=== PATIENT | male | born 1980 | race Caucasian/White ===

== ENCOUNTER 2017-12-26 04:22 | Emergency (ER) | payer OTHER ==
[2017-12-26] MEDS ORDERED: predniSONE 20 MG TABLET (UD) PO ONE (04:38)
[2017-12-26 04:39] VITALS: BP 105/70; PULSE 102; TEMP 98.1; BMI 20.7
[2017-12-26] MEDS ORDERED: ALBUTEROL SO4 2.5/IPRATROPIUM 0.5 INH SOL 3 ML VIAL.NEB. NEB STA ×2 (04:39)
--- NOTE | 2017-12-26 04:40 | PDOC ---
History of Present Illness - General History Source: Patient <Aristides Islas - Last Filed: 12/26/17 06:18> - General History Source: Patient Exam Limitations: No Limitations - History of Present Illness Initial Comments: 12/26/17 04:52 The patient is a 37 year old male with significant past medical history of asthma, seizures presents to the emergency department complaining of difficulty breathing. The patient reports dyspnea for the past 2 weeks, with right sided chest upper flank pain and occasional productive cough. Associated symptoms of active cough, and pain with deep breathing. Denies fever or chills. Denies nausea, vomiting, diarrhea or constipation. Denies any discoloration of the skin or orthopnea. Denies dysuria, hematuria, frequency or urgency to urinate. Allergies: NKDA Social history:The patient reports the use of cigarettes, 1 pack daily. No use of alcohol or recreational drug reported. Surgical history: L. Pneumothorax PCP: Dr. Cristy Nuñez <Haydee Simmons - Last Filed: 12/26/17 06:21> - General Chief Complaint: Shortness of Breath Stated Complaint: DIFFICULTY BREATHING Time Seen by Provider: 12/26/17 04:35 Past History - Past Medical History Asthma: Yes Seizures: Yes - Surgical History Lung Surgery: Yes (L PNEUMOTHORAX.) - Suicide/Smoking/Psychosocial Hx Smoking Status: Yes Smoking History: Current every day smoker Number of Cigarettes Smoked Daily: 15 Information on smoking cessation initiated: No 'Breaking Loose' booklet given: 08/12/13 Hx Alcohol Use: No Drug/Substance Use Hx: No Substance Use Type: Alcohol <Aristides Islas - Last Filed: 12/26/17 06:18> <Haydee Simmons - Last Filed: 12/26/17 06:21> - Past Medical History Allergies/Adverse Reactions: Allergies Allergy/AdvReac Type Severity Reaction Status Date / Time No Known Allergies Allergy Verified 12/26/17 04:33 Home Medications: Ambulatory Orders Albuterol 0.083% Nebulizer Kassy [Ventolin 0.083% Nebulizer Soln -] 1 neb NEB Q6H #30 vial 12/26/17 Sulfamethoxazole/Trimethoprim [Bactrim *Ds*] 1 tab PO BID #20 tablet 12/26/17 predniSONE [Deltasone -] 40 mg PO DAILY #14 tablet 05/17/18 Review of Systems - Review of Systems Able to Perform ROS?: Yes Comments:: 12/26/17 04:51 CONSTITUTIONAL: Absent: fever, chills, diaphoresis, generalized weakness, malaise, loss of appetite HEENT: Absent: rhinorrhea, nasal congestion, throat pain, throat swelling, difficulty swallowing, mouth swelling, ear pain, eye pain, visual Changes CARDIOVASCULAR: Absent: chest pain, syncope, palpitations, irregular heart rate, lightheadedness , peripheral edema RESPIRATORY: (+) difficulty breathing and pain with deep breathing, occasional productive cough. Absent:shortness of breath, orthopnea stridor, hemoptysis GASTROINTESTINAL: Absent: abdominal pain, abdominal distension, nausea, vomiting, diarrhea, constipation, melena, hematochezia GENITOURINARY: Absent: dysuria, frequency, urgency, hesitancy, hematuria, flank pain, genital pain MUSCULOSKELETAL: Absent: myalgia, arthralgia, joint swelling SKIN: Absent: rash, itching, pallor HEMATOLOGIC/IMMUNOLOGIC: Absent: easy bleeding, easy bruising, lymphadenopathy, frequent infections ENDOCRINE: Absent: unexplained weight gain, unexplained weight loss, heat intolerance, cold intolerance NEUROLOGIC: Absent: headache, focal weakness or paresthesias, dizziness, unsteady gait, seizure, mental status changes, bladder or bowel incontinence PSYCHIATRIC: Absent: anxiety, depression, suicidal or homicidal ideation, hallucinations. <Haydee Simmons - Last Filed: 12/26/17 06:21> *Physical Exam - Vital Signs Last Vital Signs Temp Pulse Resp BP Pulse Ox 98.1 F 102 H 18 105/70 95 12/26/17 04:34 12/26/17 04:34 12/26/17 04:34 12/26/17 04:34 12/26/17 04:34 <Aristides Islas - Last Filed: 12/26/17 06:18> - Vital Signs Last Vital Signs Temp Pulse Resp BP Pulse Ox 98.1 F 102 H 18 105/70 95 12/26/17 04:34 12/26/17 04:34 12/26/17 04:34 12/26/17 04:34 12/26/17 04:34 - Physical Exam Comments: 12/26/17 04:51 GENERAL: Well developed, well nourished. Awake and alert. No acute distress. HEENT: Normocephalic, atraumatic. PERRLA, EOMI. No conjunctival pallor. Sclera are non- icteric. Moist mucous membranes. Oropharynx is clear. NECK: Supple. Full ROM. No JVD. Carotid pulses 2+ and symmetric, without bruits. No thyromegaly. No lymphadenopathy. CARDIOVASCULAR: Regular rate and rhythm. No murmurs, rubs, or gallops. Distal pulses are 2+ and symmetric. PULMONARY: (+) Course wheezing throughout both lung field, more diminished breath sounds in the right lower lung field. No rales or rhonchi. ABDOMINAL: Soft. Non-tender. Non-distended. No rebound or guarding. No organomegaly. Normoactive bowel sounds. MUSCULOSKELETAL Normal range of motion at all joints. No bony deformities or tenderness. No CVA tenderness. EXTREMITIES: No cyanosis. No clubbing. No edema. No calf tenderness. SKIN: Warm and dry. Normal capillary refill. No rashes. No jaundice. NEUROLOGICAL: Alert, awake, appropriate. Cranial nerves 2-12 intact. No deficits to light touch and temperature in face, upper extremities and lower extremities. No motor deficits in the in face, upper extremities and lower extremities. Normoreflexic in the upper and lower extremities. Normal speech. Toes are down- going bilaterally. Gait is normal without ataxia. PSYCHIATRIC: Cooperative. Good eye contact. Appropriate mood and affect. <Haydee Simmons - Last Filed: 12/26/17 06:21> ED Treatment Course - Medications Given in the ED: ED Medications Discontinued Medications Generic Name Dose Route Start Last Admin Trade Name Freq PRN Reason Stop Dose Admin Albuterol/Ipratropium 1 amp 12/26/17 04:39 12/26/17 04:48 Duoneb - NEB 12/26/17 04:40 1 amp ONCE STA Administration Albuterol/Ipratropium 1 amp 12/26/17 04:39 12/26/17 04:48 Duoneb - NEB 12/26/17 04:40 1 amp ONCE STA Administration Prednisone 60 mg 12/26/17 04:38 12/26/17 04:48 Deltasone - PO 12/26/17 04:39 60 mg ONCE ONE Administration <Haydee Simmons - Last Filed: 12/26/17 06:21> Medical Decision Making - Medical Decision Making 12/26/17 06:20 Dr. Islas: The scribe's documentation has been prepared under my direction and personally reviewed by me in its entirery. I confirm that the note above accurately reflects all work, treatment, procedures, and medical decision making performed by me. <Aristides Islas - Last Filed: 12/26/17 06:18> - Medical Decision Making 12/26/17 04:53 Documentation prepared by Haydee Simmons, acting as medical records coordinator for Aristides Islas DO <Haydee Simmons - Last Filed: 12/26/17 06:21> *DC/Admit/Observation/Transfer - Discharge Dispostion Decision to Admit order: No <Aristides Islas - Last Filed: 12/26/17 06:18> <Haydee Simmons - Last Filed: 12/26/17 06:21> Diagnosis at time of Disposition: Shortness of breath Acute bronchitis Qualifiers: Bronchitis organism: other organism Qualified Code(s): J20.8 - Acute bronchitis due to other specified organisms - Discharge Dispostion Disposition: HOME Condition at time of disposition: Stable - Prescriptions Prescriptions: Albuterol 0.083% Nebulizer Kassy [Ventolin 0.083% Nebulizer Soln -] 1 neb NEB Q6H #30 vial predniSONE [Deltasone -] 40 mg PO DAILY #14 tablet Sulfamethoxazole/Trimethoprim [Bactrim *Ds*] 1 tab PO BID #20 tablet - Referrals Referrals: Cristy Nuñez MD [Primary Care Provider] - - Patient Instructions Printed Discharge Instructions: DI for Asthma -- Adult, DI for Acute Bronchitis
[2017-12-26] MEDS ORDERED: predniSONE 20 MG TABLET (UD) ONE (04:41)
[2017-12-26] MEDS ORDERED: SULFAMETHOXAZOLE/TRIMETHOPRIM 800MG/160MG D.S. TABLET PO ONE (06:17)
[2017-12-26] MEDS ORDERED: SULFAMETHOXAZOLE/TRIMETHOPRIM 800MG/160MG D.S. TABLET ONE (06:20)
== END 2017-12-26 06:25 | disposition home or self-care (01) ==
LOC: JER 04:22
PROC: 3E0F7GC Introduction of Other Therapeutic Substance into Respiratory Tract, Via Natural or Artificial Opening (ICD-10-PCS; principal; 2017-12-26)
PROC: 3E0F7GC Introduction of Other Therapeutic Substance into Respiratory Tract, Via Natural or Artificial Opening (ICD-10-PCS; 2017-12-26)
DX: J20.9 Acute bronchitis, unspecified (principal); F17.210 Nicotine dependence, cigarettes, uncomplicated
CPT/HCPCS: 71046-TC-FY; 99281-25; J7620

== ENCOUNTER 2018-01-30 23:16 | Inpatient (IN) | payer OTHER ==
--- NOTE | 2018-01-31 00:20 | HP ---
CIWA Score - CIWA Score Nausea/Vomitin-No Nausea/No Vomiting Muscle Tremors: None Anxiety: 4-Mod. Anxious/Guarded Agitation: 4-Moderately Restless Paroxysmal Sweats: 3 Orientation: 1-Uncertain about Date Tacttile Disturbances: 0-None Auditory Disturbances: 0-None Visual Disturbances: 0-None Headache: 0-None Present CIWA-Ar Total Score: 12 Admission ROS BHS - HPI Chief Complaint: SEEKING DETOX FOR WITHDRAWAL SX'S FROM ETOH Allergies/Adverse Reactions: Allergies Allergy/AdvReac Type Severity Reaction Status Date / Time No Known Allergies Allergy Verified 01/31/18 00:12 History of Present Illness: 37 Y.O. MALE WITH HX/O OPIOID, COCAINE, THC DEPENDENCE HERE FOR DETOX. UTOX ONLY POSITIVE FOR THC. INFORMED CLIENT THAT HE WILL ONLY BE DETOXED FROM ALCOHOL. CLIENT VERBALIZES UNDERSTANDING. SELF REFERRED. CLIENT REPORTS FIRST TIME IN DETOX. HE ATTEND NEW FOCUS HERE AT [facility]. REPORTS AN OVERDOSE X1 IN 2013. DENIES HX/O A/V HALLUCINATIONS, SEIZURES D/O, BLACK OUTS. DENIES LEGALS Exam Limitations: No Limitations - Ebola screening Have you traveled outside of the country in the last 21 days: No (N) Have you had contact with anyone from an Ebola affected area: No Do you have a fever: No - Review of Systems Constitutional: Chills, Loss of Appetite, Malaise, Night Sweats, Changes in sleep EENT: reports: No Symptoms Reported Respiratory: reports: Shortness of Breath (ASTHMA) Cardiac: reports: No Symptoms Reported GI: reports: No Symptoms Reported : reports: No Symptoms Reported Musculoskeletal: reports: No Symptoms Reported Integumentary: reports: No Symptoms Reported Neuro: reports: No Symptoms reported Endocrine: reports: No Symptoms Reported Hematology: reports: No Symptoms Reported Psychiatric: reports: Anxious, Depressed Other Systems: Reviewed and Negative Patient History - Patient Medical History Hx Anemia: No Hx Asthma: Yes Hx Chronic Obstructive Pulmonary Disease (COPD): No Hx Cancer: No Hx Cardiac Disorders: No Hx Congestive Heart Failure: No Hx Hypertension: No Hx Hypercholesterolemia: No Hx Pacemaker: No HX Cerebrovascular Accident: No Hx Seizures: No Hx Dementia: No Hx Diabetes: No Hx Gastrointestinal Disorders: No Hx Liver Disease: No Hx Genitourinary Disorders: No Hx Sexually Transmitted Disorders: No Hx Renal Disease (ESRD): No Hx Thyroid Disease: No Hx Human Immunodeficiency Virus (HIV): No Hx Hepatitis C: No Hx Depression: Yes Hx Suicide Attempt: No Hx Bipolar Disorder: No Hx Schizophrenia: No Other Medical History: ANXIETY - Patient Surgical History Past Surgical History: Yes Hx Lung Surgery: Yes (L PNEUMOTHORAX.) Anesthesia Reaction: No - PPD History Previous Implant?: Yes Documented Results: Negative w/o proof Implanted On Prior [facility] Admission?: Yes PPD to be Administered?: Yes - Smoking Cessation Smoking history: Current every day smoker Aproximately how many cigarettes per day: 10 Cigars Per Day: 0 Hx Chewing Tobacco Use: No Initiated information on smoking cessation: Yes 'Breaking Loose' booklet given: 01/31/18 - Substance & Tx. History Hx Alcohol Use: Yes Hx Substance Use: Yes Substance Use Type: Alcohol, Cocaine, Heroin, Marijuana Hx Substance Use Treatment: Yes ([facility]) - Substances Abused BEER Route: Oral Frequency: 3-6 times per week Amount used: 3-12OZ Age of first use: 21 Date of Last Use: 01/30/18 COCAINE Route: Inhalation Frequency: 1-2 times per week Amount used: $20 Age of first use: 33 Date of Last Use: 01/28/18 THC Route: Smoking Frequency: Daily Amount used: 4 BLUNTS Age of first use: 12 Date of Last Use: 01/30/18 HEROIN Route: Inhalation Frequency: 3-6 times per week Amount used: 3 BAGS Age of first use: 32 Date of Last Use: 01/27/18 Family Disease History - Family Disease History Family History: Denies Admission Physical Exam [facility] - Physical General Appearance: Yes: Appropriately Dressed, Tremorous (FELT), Sweating ( FLUSHED FACE), Anxious HEENTM: Yes: EOMI, Normocephalic, Normal Voice, GETACHEW, Pharynx Normal, Other ( POOR DENTITION) Respiratory: Yes: Chest Non-Tender, Decreased Breath Sounds, No Respiratory Distress, No Accessory Muscle Use, Wheezing Neck: Yes: No masses,lesions,Nodules, Supple, Trachea in good position Breast: Yes: Breast Exam Deferred Cardiology: Yes: Regular Rhythm, Regular Rate, S1, S2 Abdominal: Yes: Normal Bowel Sounds, Non Tender, Flat, Soft Genitourinary: Yes: Within Normal Limits Back: Yes: Normal Inspection Musculoskeletal: Yes: full range of Motion, Gait Steady Extremities: Yes: Normal Capillary Refill, Normal Range of Motion, Non-Tender, Tremors Neurological: Yes: dump worker II-XII NML intact, Fully Oriented, Alert, Motor Strength 5/5 Integumentary: Yes: Normal Color, Warm, Other (FLLUSHED FACE) Lymphatic: Yes: Within Normal Limits - Diagnostic (1) Alcohol dependence with uncomplicated withdrawal Current Visit: Yes Status: Acute (2) Cannabis abuse, uncomplicated Current Visit: Yes Status: Acute (3) Asthma Current Visit: Yes Status: Acute (4) Nicotine dependence Current Visit: Yes Status: Acute Cleared for Admission [facility] - Detox or Rehab [facility] Level of Care: Medically Managed Detox Regimen/Protocol: Librium Claeared for Rehab Admission: No [facility] Breath Alcohol Content Breath Alcohol Content: 0.254 Vital Signs - Vital Signs Vital Signs Refused: No Temperature: 98.6 F Temperature Source: Oral Pulse Rate: 85 Respiratory Rate: 18 Blood Pressure: 107/63 BP Location: Left Arm Blood Pressure Position: Sitting - Height Height: 5 ft 9 in - Weight Weight: 58.06 kg Weight Measurement Method: Standing Scale Body Mass Index (BMI): 18.8 - Bowel Function Bowel Movement: No Urine Drug Screen - Test Device Lot Number: [id number] Expiration Date: 10/09/19 - Results Drug Screen Negative: Yes Urine Drug Screen Results: THC-Marijuana
[2018-01-31] MEDS ORDERED: IBUPROFEN 400 MG TABLET (FP) PO PRN (00:35)
[2018-01-31] MEDS ORDERED: ACETAMINOPHEN 325 MG TABLET (FP) PO PRN (00:35)
[2018-01-31] MEDS ORDERED: MAGNESIUM HYDROX 2400MG/30ML ORAL SUSPENSION 30 ML CUP PO PRN (00:35)
[2018-01-31] MEDS ORDERED: LOPERAMIDE HCL 2 MG CAPSULE PO PRN (00:35)
[2018-01-31] MEDS ORDERED: NICOTINE POLACRILEX 2 MG GUM BC PRN (00:35)
[2018-01-31] MEDS ORDERED: chlordiazePOXIDE HCL 25 MG CAPSULE PO PRN (00:35)
[2018-01-31] MEDS ORDERED: guaiFENesin/D-METHORPHAN HB 10 ML UNIT-DOSE CUPS PO PRN (00:35)
[2018-01-31] MEDS ORDERED: MENTHOL/PHENOL 1 EACH UD MM PRN (00:35)
[2018-01-31] MEDS ORDERED: hydrOXYzine PAMOATE 50 MG CAPSULE (FP) PO PRN (00:35)
[2018-01-31] MEDS ORDERED: MAG HYDROX/AL HYDROX/SIMETH 30 ML UNIT-DOSE CUP PO PRN (00:35)
[2018-01-31] MEDS ORDERED: MAGNESIUM CITRATE 300 ML BOTTLE PO PRN (00:35)
[2018-01-31] MEDS ORDERED: P-EPHED 60MG/TRIPROLIDI 2.5MG TABLET PO PRN (00:35)
[2018-01-31] MEDS ORDERED: ALBUTEROL SO4 18 GM HFA INHALER IH PRN (00:37)
[2018-01-31] MEDS ORDERED: ALBUTEROL SO4 0.083% IH SOL 2.5 MG/3 ML VIAL.NEB. NEB PRN (00:45)
[2018-01-31 00:48] VITALS: BMI 18.8
[2018-01-31] MEDS ORDERED: chlordiazePOXIDE HCL 25 MG CAPSULE ONE (01:07)
[2018-01-31] MEDS: chlordiazePOXIDE HCL 25 MG CAPSULE PO SCH ×4 (05:59→22:39)
--- NOTE | 2018-01-31 08:57 | EKG ---
Test Reason : Blood Pressure : / mmHG Vent. Rate : 075 BPM Atrial Rate : 075 BPM P-R Int : 196 ms QRS Dur : 092 ms QT Int : 364 ms P-R-T Axes : 070 056 073 degrees QTc Int : 406 ms NORMAL SINUS RHYTHM NORMAL ECG Confirmed by RASHEED SELLERS MD ([id number]) on 01/31/2018 8:57:03 AM Referred By: Confirmed By:RASHEED SELLERS MD
[2018-01-31] MEDS ORDERED: PRENATAL VITAMINS W/ FOLIC ACID TABLET (FP) PO SCH (10:00)
[2018-01-31] MEDS ORDERED: NICOTINE 21 MG/24 HOURS TOPICAL PATCH TD SCH (10:00)
--- NOTE | 2018-01-31 11:04 | CONSULT ---
[facility] Psychiatric Consult - Data Date of interview: 01/31/18 Admission source: [facility] Identifying data: Patient is a 37 year old single male, without kids, domiciled , and currently homeless. This is patient's first admission to detox at [facility]. Patient admitted to [facility] detox for alcohol dependence. Substance Abuse History: Substance & Tx. History. Hx Alcohol Use: Yes. Hx Substance Use: Yes. Substance Use Type: Alcohol, Cocaine, Heroin, Marijuana. Hx Substance Use Treatment: Yes ([facility]). - Substances Abused. * * BEER. Route: Oral. Frequency: 3-6 times per week. Amount used: 3-12OZ. Age of first use: 21. Date of Last Use: 01/30/18. COCAINE. Route: Inhalation. Frequency: 1-2 times per week. Amount used: $20. Age of first use : 33. Date of Last Use: 01/28/18. THC. Route: Smoking. Frequency: Daily. Amount used: 4 BLUNTS. Age of first use: 12. Date of Last Use: 01/30/18. * * HEROIN. Route: Inhalation. Frequency: 3-6 times per week. Amount used: 3 BAGS. Age of first use: 32. Date of Last Use: 01/27/18 Medical History: Asthma, h/o left pneumothroax Psychiatric History: Patient denies h/o psychiatric hospitalizations, oupatient care and suicide attempt. Pt. reports being diagnosed with depression two years ago while he was in the inpatient rehab unit at [facility]. He was started on mirtzapine and prozac but stopped taking medications after completing his prescription. Pt. was restarted on mirtzapine while he was incarcerated in December of 2017 and once again was nonadherent after being released from [facility]. Pt. requesting to restart Mirtzapine. Pt. denies h/o suicide attempt. Physical/Sexual Abuse/Trauma History: Denies. Mental Status Exam - Mental Status Exam Alert and Oriented to: Time, Place, Person Cognitive Function: Good Patient Appearance: Well Groomed Mood: Hopeful, Euthymic Affect: Mood Congruent Patient Behavior: Cooperative Speech Pattern: Appropriate Voice Loudness: Normal Thought Process: Intact, Goal Oriented Thought Disorder: Not Present Hallucinations: Denies Suicidal Ideation: Denies Homicidal Ideation: Denies Insight/Judgement: Poor Sleep: Poorly Appetite: Fair Muscle strength/Tone: Normal Gait/Station: Normal Psychiatric Findings - Problem List ([place] 1, 2,3) (1) Alcohol dependence with uncomplicated withdrawal Current Visit: Yes Status: Acute (2) Asthma Current Visit: Yes Status: Chronic Qualifiers: Asthma severity: mild Asthma persistence: intermittent Asthma complication type: uncomplicated Qualified Code(s): J45.20 - Mild intermittent asthma, uncomplicated (3) Cannabis abuse, uncomplicated Current Visit: Yes Status: Acute (4) Nicotine dependence Current Visit: Yes Status: Chronic Qualifiers: Nicotine product type: cigarettes Substance use status: uncomplicated Qualified Code(s): F17.210 - Nicotine dependence, cigarettes, uncomplicated (5) Substance induced mood disorder Current Visit: Yes Status: Suspected - Initial Treatment Plan Initial Treatment Plan: Psychoeducation provided. Detoxificaition in progress. Mirtzapine 15mg qhs ordered. Benefits and side effects discussed. Verbal consent given.
[2018-01-31] MEDS ORDERED: PNEUMOCOCCAL 23 VACCINE 0.5 ML VIAL IM ONE (12:00)
[2018-01-31] MEDS ORDERED: PNEUMOC 13-VAL CONJ-DIP CRM/PF 0.5 ML DISP.SYRIN IM ONE (12:00)
--- NOTE | 2018-01-31 16:03 | PN ---
S CIWA - CIWA Score Nausea/Vomitin-No Nausea/No Vomiting Muscle Tremors: None Anxiety: 4-Mod. Anxious/Guarded Agitation: 1-Slight > Activity Paroxysmal Sweats: 3 Orientation: 0-Oriented Tacttile Disturbances: 2-Mild Itch/Numbness/Burn Auditory Disturbances: 0-None Visual Disturbances: 2-Mild Sensitivity Headache: 4-Moderately Severe CIWA-Ar Total Score: 16 BHS Progress Note (SOAP) Subjective: Tremors, Sweating, Fatigue, H/A. Objective: PATIENT A & O X 3. NO ACUTE DISTRESS. 01/31/18 16:04 Vital Signs Temperature 98.8 F 01/31/18 13:36 Pulse Rate 76 01/31/18 15:00 Respiratory Rate 18 01/31/18 15:00 Blood Pressure 113/77 01/31/18 13:36 O2 Sat by Pulse Oximetry (%) ADMISSION LABS RESULTS PENDING. 01/31/18 16:05 Assessment: 01/31/18 16:06 WITHDRAWAL SYMPTOMS. Plan: CONTINUE DETOX. INCREASE DAILY PO FLUID INTAKE.
[2018-01-31] MEDS ORDERED: MELATONIN 5 MG TABLETS PO PRN (22:00)
[2018-01-31] MEDS ORDERED: THIAMINE HCL 100 MG TABLET (FP) PO SCH (22:00)
[2018-01-31] MEDS ORDERED: MIRTAZAPINE 15 MG TABLET (FP) PO SCH (22:00)
[2018-02-01] MEDS ORDERED: chlordiazePOXIDE HCL 25 MG CAPSULE PO SCH (05:00)
[2018-02-01 06:18] VITALS: BP 122/79; PULSE 79; TEMP 98.6
[2018-02-01 10:36] LABS: HEMATOCRIT 44.1 % (35.4-49); HEMOGLOBIN 15.3 GM/dL (11.7-16.9); MCH 34.9 pg (25.7-33.7); MCHC 34.8 g/dl (32.0-35.9); MEAN CELL VOLUME 100.2 fl (80-96); MEAN PLT VOLUME 8.4 fl (7.5-11.1); PLATELET COUNT 150 K/MM3 (134-434); RDW 12.4 % (11.9-15.9); WHITE BLOOD COUNT 5.9 K/mm3 (4.0-10.0)
[2018-02-01 10:50] LABS: ALBUMIN 3.7 g/dl (3.4-5.0); CHLORIDE 101 mmol/L (98-107); SODIUM 138 mmol/L (136-145)
[2018-02-01 11:05] LABS: ALK PHOS 101 U/L (45-117); ANION GAP 11 (8-16); BILIRUBIN,TOTAL 1.6 mg/dL (0.2-1.0); BLOOD UREA NITROGEN 9 mg/dL (7-18); CALCIUM 8.7 mg/dL (8.5-10.1); CO2 26 mmol/L (21-32); CREATININE 0.6 mg/dL (0.7-1.3); GLUCOSE,RANDOM 81 mg/dL (74-106); SGOT/AST 52 U/L (15-37); SGPT/ALT 43 U/L (12-78); TOT PROT 6.8 g/dl (6.4-8.2)
--- NOTE | 2018-02-01 13:48 | PN ---
[facility] CIWA - CIWA Score Nausea/Vomitin-No Nausea/No Vomiting Muscle Tremors: 2 Anxiety: 4-Mod. Anxious/Guarded Agitation: 4-Moderately Restless Paroxysmal Sweats: 2 Orientation: 0-Oriented Tacttile Disturbances: 2-Mild Itch/Numbness/Burn Auditory Disturbances: 0-None Visual Disturbances: 1-Very Mild Sensitivity Headache: 0-None Present CIWA-Ar Total Score: 15 BHS Progress Note (SOAP) Subjective: Tremors, Sweating, Fatigue, Anxious. Objective: 02/01/18 13:48 Vital Signs Temperature 98.6 F 02/01/18 06:17 Pulse Rate 79 02/01/18 06:17 Respiratory Rate 16 02/01/18 06:17 Blood Pressure 122/79 02/01/18 06:17 O2 Sat by Pulse Oximetry (%) Laboratory Tests 02/01/18 02/01/18 02/01/18 08:00 08:00 08:00 WBC 5.9 RBC 4.40 Hgb 15.3 Hct 44.1 MCV 100.2 H MCH 34.9 H MCHC 34.8 RDW 12.4 Plt Count 150 MPV 8.4 Sodium 138 Potassium 3.0 L Chloride 101 Carbon Dioxide 26 Anion Gap 11 BUN 9 Creatinine 0.6 L Creat Clearance w eGFR > 60 Random Glucose 81 Calcium 8.7 Total Bilirubin 1.6 H AST 52 H ALT 43 Alkaline Phosphatase 101 Total Protein 6.8 Albumin 3.7 HIV 1&2 Antibody Screen Negative HIV P24 Antigen Negative LABS NOTED. Assessment: PATIENT A & O X 3, OBSERVED AMBULATING ON UNIT. NO ACUTE DISTRESS. 02/01/18 13:48 Vital Signs Temperature 98.6 F 02/01/18 06:17 Pulse Rate 79 02/01/18 06:17 Respiratory Rate 16 02/01/18 06:17 Blood Pressure 122/79 02/01/18 06:17 O2 Sat by Pulse Oximetry (%) Laboratory Tests 02/01/18 02/01/18 02/01/18 08:00 08:00 08:00 WBC 5.9 RBC 4.40 Hgb 15.3 Hct 44.1 MCV 100.2 H MCH 34.9 H MCHC 34.8 RDW 12.4 Plt Count 150 MPV 8.4 Sodium 138 Potassium 3.0 L Chloride 101 Carbon Dioxide 26 Anion Gap 11 BUN 9 Creatinine 0.6 L Creat Clearance w eGFR > 60 Random Glucose 81 Calcium 8.7 Total Bilirubin 1.6 H AST 52 H ALT 43 Alkaline Phosphatase 101 Total Protein 6.8 Albumin 3.7 HIV 1&2 Antibody Screen Negative HIV P24 Antigen Negative LABS NOTED. HYPOKALEMIA. 02/01/18 13:54 Plan: CONTINUE DETOX. INCREASE DAILY PO FLUID INTAKE. K-DUR, 20 MEQ PO BID.
--- NOTE | 2018-02-01 14:08 | DS ---
[facility] Detox Discharge Summary Admission Date: 01/31/18 Discharge Date: 02/01/18 - History Present History: Alcohol Dependence, Cannabis Dependence Additional Comments: PATIENT DOES NOT WISH TO STAY TO COMPLETE DETOX REGIMEN. RISKS OF LEAVING DETOX UNIT AGAINST MEDICAL ADVICE AND PRIOR TO COMPLETION OF DETOX REGIMEN EXPLAINED TO PATIENT. PATIENT ADVISED TO GO IMMEDIATELY TO NEAREST ER SHOULD ANY INTOLERABLE DETOX SYMPTOMS DEVELOP AT ANY TIME. PATIENT FOUND TO BE HYPOKALEMIC WHILE ADMITTED FOR DETOX. - PRESCRIPTION FOR K-DUR SENT TO PATIENT'S PHARMACY ( [facility], [address] FOR FOLLOW-UP AFTERCARE. PATIENT LEFT DETOX UNIT IN STABLE MEDICAL CONDITION. Pertinent Past History: Asthma, Depression, Anxiety, Nicotine Dependence. - Physical Exam Results Vital Signs: Vital Signs Temperature 98.6 F 02/01/18 06:17 Pulse Rate 79 02/01/18 06:17 Respiratory Rate 16 02/01/18 06:17 Blood Pressure 122/79 02/01/18 06:17 O2 Sat by Pulse Oximetry (%) Pertinent Admission Physical Exam Findings: WITHDRAWAL SYMPTOMS. Laboratory Tests 02/01/18 02/01/18 02/01/18 08:00 08:00 08:00 WBC 5.9 RBC 4.40 Hgb 15.3 Hct 44.1 MCV 100.2 H MCH 34.9 H MCHC 34.8 RDW 12.4 Plt Count 150 MPV 8.4 Sodium 138 Potassium 3.0 L Chloride 101 Carbon Dioxide 26 Anion Gap 11 BUN 9 Creatinine 0.6 L Creat Clearance w eGFR > 60 Random Glucose 81 Calcium 8.7 Total Bilirubin 1.6 H AST 52 H ALT 43 Alkaline Phosphatase 101 Total Protein 6.8 Albumin 3.7 HIV 1&2 Antibody Screen Negative HIV P24 Antigen Negative LABS NOTED. - Treatment Hospital Course: Detoxed Safely - Medication Discharge Medications: Ambulatory Orders Mirtazapine [Remeron -] 15 mg PO HS #30 tablet 01/31/18 Potassium Chloride [K-Dur -] 20 meq PO DAILY 14 Days #14 tablet.er 02/01/18 - Diagnosis (1) Alcohol dependence with uncomplicated withdrawal Status: Acute (2) Asthma Status: Chronic Qualifiers: Asthma severity: mild Asthma persistence: intermittent Asthma complication type: uncomplicated Qualified Code(s): J45.20 - Mild intermittent asthma, uncomplicated (3) Cannabis abuse, uncomplicated Status: Acute (4) Nicotine dependence Status: Chronic Qualifiers: Nicotine product type: cigarettes Substance use status: uncomplicated Qualified Code(s): F17.210 - Nicotine dependence, cigarettes, uncomplicated - AMA Did Patient Leave Against Medical Advice: Yes (PATIENT DID NOT WISH TO REMAIN TO COMPLETE DETOX REGIMEN.)
[2018-02-02] MEDS ORDERED: chlordiazePOXIDE 5 MG CAPSULE PO SCH (05:00)
[2018-02-03] MEDS ORDERED: chlordiazePOXIDE HCL 10 MG CAPSULE PO SCH (05:00)
== END 2018-02-01 10:15 | disposition home or self-care (01) | DRG 776 ==
LOC: YASAS 23:16 → Y3N 01-31 00:37
PROVIDERS: ADMIT Family Medicine Addiction Medicine; ATTEND Family Medicine Addiction Medicine
PROC: HZ2ZZZZ Detoxification Services for Substance Abuse Treatment (ICD-10-PCS; principal; 2018-01-31)
DX: F12.20 Cannabis dependence, uncomplicated (principal); F17.210 Nicotine dependence, cigarettes, uncomplicated; F41.9 Anxiety disorder, unspecified; F32.9 Major depressive disorder, single episode, unspecified; F19.24 Other psychoactive substance dependence with psychoactive substance-induced mood disorder; J45.20 Mild intermittent asthma, uncomplicated; Z87.09 Personal history of other diseases of the respiratory system
CPT/HCPCS: 36415; 80053; 85027; 86593; 87389; 90732; 93005; 93010; G0009

== ENCOUNTER 2020-08-12 17:50 | Emergency (ER) | payer OTHER ==
[2020-08-12 17:57] VITALS: BP 126/84; PULSE 96; TEMP 98.4; BMI 21.4
== END 2020-08-12 18:53 | disposition home or self-care (01) ==
LOC: JERFT 17:50
DX: S42.295A Other nondisplaced fracture of upper end of left humerus, initial encounter for closed fracture (principal)
CPT/HCPCS: 73030-TC-LT-FY; 99283-25

== ENCOUNTER 2024-05-10 20:35 | Inpatient (IN) | payer OTHER ==
[2024-05-10 21:02] VITALS: BMI 20.7
[2024-05-10] MEDS ORDERED: ONDANSETRON *ODT* 4 MG TABLET SL PRN (22:23)
[2024-05-10] MEDS ORDERED: NALOXONE (NARCAN) HCL 4 MG/0.1 ML SPRAY NS PRN (22:23)
[2024-05-10] MEDS ORDERED: NICOTINE POLACRILEX 4 MG GUM BUC PRN (22:23)
[2024-05-10] MEDS ORDERED: IBUPROFEN 400 MG TABLET (FP) PO PRN (22:23)
[2024-05-10] MEDS ORDERED: MAGNESIUM HYDROX 2400MG/30ML ORAL SUSPENSION 30 ML CUP PO PRN (22:23)
[2024-05-10] MEDS ORDERED: BENZONATATE 200 MG CAPSULE PO PRN (22:23)
[2024-05-10] MEDS ORDERED: MAG HYDROX/AL HYDROX/SIMETH 30 ML UNIT-DOSE CUP PO PRN (22:23)
[2024-05-10] MEDS ORDERED: NALOXONE HCL 0.4 MG/ML VIAL IM PRN (22:23)
[2024-05-10] MEDS ORDERED: IBUPROFEN 600 MG TABLET (FP) PO PRN (22:23)
[2024-05-10] MEDS ORDERED: DICYCLOMINE HCL 10 MG CAPSULE PO PRN (22:23)
[2024-05-10] MEDS ORDERED: ACETAMINOPHEN 325 MG TABLET (FP) PO PRN (22:23)
[2024-05-10] MEDS ORDERED: POLYETHYLENE GLYCOL (HEALTHYLAX) 3350 17 GM PACKET PO PRN (22:23)
[2024-05-10] MEDS ORDERED: guaiFENesin 600 MG TABLET.ER (FP) PO PRN (22:23)
[2024-05-10] MEDS ORDERED: LOPERAMIDE HCL 2 MG CAPSULE PO PRN (22:23)
[2024-05-10] MEDS ORDERED: BISMUTH SUBSALICYLATE 524 MG/30 ML PO PRN (22:23)
[2024-05-10] MEDS ORDERED: ALBUTEROL SO4 HFA INHALER IH PRN (22:25)
[2024-05-11] MEDS: PRENATAL VITAMINS W/ FOLIC ACID TABLET (FP) PO SCH (09:06)
[2024-05-11] MEDS: NICOTINE 21 MG/24 HOURS TOPICAL PATCH TD SCH (09:06)
[2024-05-11] MEDS ORDERED: chlordiazePOXIDE HCL 25 MG CAPSULE PO PRN (10:13)
[2024-05-11] MEDS: chlordiazePOXIDE HCL 25 MG CAPSULE PO SCH (11:03)
[2024-05-11 14:57] LABS: HEMATOCRIT 42.1 % (35.4-49); HEMOGLOBIN 14.1 GM/dL (11.7-16.9); MCH 34.2 pg (25.7-33.7); MCHC 33.5 g/dl (32.0-35.9); MEAN CELL VOLUME 102.3 fl (80-96); MEAN PLT VOLUME 8.6 fl (7.5-11.1); PLATELET COUNT 177 10^3/uL (134-434); RBC 4.12 M/mm3 (4.00-5.60); RDW 12.4 % (11.9-15.9); WHITE BLOOD COUNT 5.5 K/mm3 (4.0-10.0)
[2024-05-11 15:00] LABS: CHLORIDE 102 mmol/L (98-107); POTASSIUM 3.5 mmol/L (3.5-5.1); SODIUM 137 mmol/L (136-145)
[2024-05-11 15:03] LABS: CALCIUM 8.8 mg/dL (8.5-10.1)
[2024-05-11 15:04] LABS: ALBUMIN 3.4 g/dl (3.4-5.0); ANION GAP 7 mmol/L (4-13); BLOOD UREA NITROGEN 5.3 mg/dL (7-18); CO2 28 mmol/L (21-32); GLUCOSE,RANDOM 153 mg/dL (74-106)
[2024-05-11 15:07] LABS: CREATININE 0.7 mg/dL (0.55-1.3); SGOT/AST 66 U/L (15-37); SGPT/ALT 40 U/L (13-61)
[2024-05-11 15:08] LABS: BILIRUBIN,TOTAL 1.6 mg/dL (0.2-1); TOT PROT 6.3 g/dl (6.4-8.2)
[2024-05-11 15:10] LABS: ALK PHOS 100 U/L (45-117)
[2024-05-11] MEDS: METHOCARBAMOL 500 MG TABLET PO PRN (22:14)
[2024-05-11] MEDS: MIRTAZAPINE 15 MG TABLET (FP) PO SCH (22:14)
[2024-05-11] MEDS: THIAMINE 100 MG TABLET PO SCH (22:14)
[2024-05-11] MEDS: MELATONIN 5 MG TABLETS PO SCH (22:14)
[2024-05-12 13:58] LABS: POTASSIUM 3.4 mmol/L (3.5-5.1)
[2024-05-12 14:16] LABS: CALCIUM 8.9 mg/dL (8.5-10.1)
[2024-05-12 14:19] LABS: CREATININE 0.6 mg/dL (0.55-1.3)
[2024-05-13] MEDS: chlordiazePOXIDE HCL 25 MG CAPSULE PO SCH (05:32)
[2024-05-13] MEDS: BENZOCAINE/MENTHOL (CHLORASEPTIC ) LOZENGE MM PRN (05:35)
[2024-05-13] MEDS ORDERED: guaiFENesin 600 MG TABLET.ER (FP) PO ONE (18:06)
[2024-05-13] MEDS: guaiFENesin 600 MG TABLET.ER (FP) PO ONE (19:46)
[2024-05-13] MEDS: guaiFENesin 600 MG TABLET.ER (FP) PO SCH (22:05)
[2024-05-14] MEDS ORDERED: chlordiazePOXIDE HCL 10 MG CAPSULE PO PRN
[2024-05-14] MEDS: chlordiazePOXIDE HCL 10 MG CAPSULE PO SCH (05:50)
[2024-05-15] MEDS: chlordiazePOXIDE HCL 10 MG CAPSULE PO SCH (05:35)
[2024-05-15] MEDS: NALOXONE (NYS OPIOID OVERDOSE PROGRAM) 4 MG/0.1 ML SPRAY NS ONE (13:46)
[2024-05-15] MEDS: hydrOXYzine PAMOATE 25 MG CAPSULE (FP) PO PRN (17:23)
[2024-05-16] MEDS: chlordiazePOXIDE HCL 10 MG CAPSULE PO ONE (05:50)
[2024-05-16 06:40] VITALS: BP 96/64; PULSE 73; RESP 16; TEMP 97.8
[2024-05-16] MEDS: NALOXONE (NYS OPIOID OVERDOSE PROGRAM) 4 MG/0.1 ML SPRAY NS PRN (08:44)
== END 2024-05-16 08:54 | disposition home or self-care (01) | DRG 774 ==
LOC: YASAS 20:35 → Y3N 22:42
PROVIDERS: ADMIT Allergy & Immunology; ATTEND Surgery
PROC: HZ2ZZZZ Detoxification Services for Substance Abuse Treatment (ICD-10-PCS; principal; 2024-05-10)
DX: F10.230 Alcohol dependence with withdrawal, uncomplicated (principal); F14.20 Cocaine dependence, uncomplicated; F16.20 Hallucinogen dependence, uncomplicated; F12.20 Cannabis dependence, uncomplicated; F17.210 Nicotine dependence, cigarettes, uncomplicated; F19.24 Other psychoactive substance dependence with psychoactive substance-induced mood disorder; F32.A Depression, unspecified; G47.00 Insomnia, unspecified; J45.20 Mild intermittent asthma, uncomplicated; R73.9 Hyperglycemia, unspecified
CPT/HCPCS: 36415; 80048; 80053; 80305; 80307; 83036; 85027; 86780; 93005; 93010